=== PATIENT | female | born 1940 | race Hispanic/Latino ===

== ENCOUNTER 2020-07-01 13:59 | Outpatient (CLI) | payer MEDICARE ==
[2020-07-02 01:27] LABS: SARS-CoV-2 PCR by NAA Not Detected (NotDetected)
== END 2020-07-01 14:00 | disposition home or self-care (01) ==
LOC: CSHLAB 13:59
PROVIDERS: ATTEND Family Medicine
DX: Z20.822 Contact with and (suspected) exposure to COVID-19 (principal); R91.8 Other nonspecific abnormal finding of lung field
CPT/HCPCS: 87635; U0003; U0005